=== PATIENT | female | born 1955 | race Caucasian/White ===

== ENCOUNTER → 2018-04-06 | Outpatient (CLI) | payer OTHER ==
--- NOTE | 2018-04-06 15:27 | Diagnostic Imaging Report ---
PROCEDURE: X-RAY CHEST, TWO VIEWS COMPARISON: None. INDICATIONS: CHEST PAIN, RECENT OVERDOSE, WEAKNESS FINDINGS: LUNGS: Surgical clips at the hilum of the right lung consistent with surgery. There is scarring in the medial aspect of the upper lung zone. No mass or infiltrate. There is a scar in the lateral right costophrenic angle. PLEURA: No effusions or pneumothorax. 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 HEART \T\ MEDIASTINUM: The heart is normal in size to mildly enlarged. Aorta is ectatic with calcifications in the arch. BONES \T\ SOFT TISSUES: No fracture or focal osseous lesion. There are surgical yvon in the anterior chest/upper abdomen. 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 No acute cardiopulmonary process. Dictated by: Julio Novak M.D. on 04/06/2018 at 15:31 Electronically approved by: Julio Novak M.D. on 04/06/2018 at 15:31
--- NOTE | 2018-04-06 15:44 | Diagnostic Imaging Report ---
PROCEDURE:X-RAY BILATERAL RIBS WITH CHEST XRAY COMPARISON:[facility], , CHEST 2 VIEWS, 04/06/2018, 14:35. INDICATIONS:MID RIB PAIN RIGHT SIDE FINDINGS: BONES: Intact and normal in morphology. No focal osseous lesions. Normal mineralization. There are mild degenerative changes of the right shoulder. 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 There is eventration of right diaphragm a small focus of scarring in the right lateral costophrenic angle is not visible on oblique projections. No evidence of mass or infiltrate. Mediastinum: The heart is top normal in size to mildly enlarged. Pleura: There is mild eventration of right diaphragm. No pleural effusion, pleural based mass, or pneumothorax. SOFT TISSUES:There are surgical sutures in the upper abdomen. A partially calcified breast prosthesis is present. CONCLUSION: No fracture, dislocation, or focal osseous lesions of the ribs to explain pain. Postoperative changes as described above. Dictated by: Julio Novak M.D. on 04/06/2018 at 15:47 Electronically approved by: Julio Novak M.D. on 04/06/2018 at 15:47
== END ==
LOC: RAD 14:25
PROVIDERS: ATTEND Internal Medicine
DX: R07.89 Other chest pain (principal)
CPT/HCPCS: 71046; 71111

== ENCOUNTER → 2020-12-31 | Outpatient (CLI) | payer MEDICARE | LOC: MRI 11:06 | PROVIDERS: ATTEND Podiatrist Foot & Ankle Surgery | DX: M86.571 Other chronic hematogenous osteomyelitis, right ankle and foot (principal) ==